=== PATIENT | female | born 1960 | race Caucasian/White ===

== ENCOUNTER 2018-07-31 05:18 | Day surgery (SDC) | payer OTHER ==
[~2018-07-31] VITALS: Ht 152.4 cm; Wt 61.7 kg
[~2018-07-31 05:18] MED LIST: CATAPRES0.1 MG PO; MULTIPLE VITAM1 EACH PO; RESTORIL7.5 MG PO; SEROQUEL PO
[2018-07-31] MEDS ORDERED: MIRALAX17 GM PO (09:21)
[2018-07-31] MEDS ORDERED: COLACE100 MG PO (09:21)
[2018-07-31] MEDS ORDERED: PERCOCET 5-3251 EACH PO (09:54)
== END 2018-07-31 12:10 | disposition home or self-care (01) ==
LOC: CIR.AMB 05:18
DX: R15.9 Full incontinence of feces (principal)

== ENCOUNTER 2018-11-23 05:56 | Day surgery (SDC) | payer OTHER ==
[~2018-11-23 05:56] MED LIST changes: +CLONAZEPAM0.5 MG PO; +COLACE100 MG PO; +MIRALAX17 GM PO; +PERCOCET 5-3251 EACH PO
[2018-11-23] MEDS ORDERED: PERCOCET 5-3251 EACH PO (11:21)
== END 2018-11-23 14:25 | disposition home or self-care (01) ==
LOC: CIR.AMB 05:56
DX: R15.9 Full incontinence of feces (principal)
CPT/HCPCS: 64581; C1778

== ENCOUNTER → 2018-12-07 | Day surgery (SDC) | payer OTHER | END | disposition home or self-care (01) | LOC: ADM 12-04 10:30 → CIR.AMB 05:50 | DX: R15.9 Full incontinence of feces (principal) | CPT/HCPCS: 64590; C1767 ==

== ENCOUNTER 2019-05-10 05:40 | Day surgery (SDC) | payer OTHER ==
[2019-05-10] MEDS ORDERED: PERCOCET 5-3251 EACH PO (09:37)
== END 2019-05-10 11:10 | disposition home or self-care (01) ==
LOC: CIR.AMB 05:40 → ADM 09:15 → CIR.AMB 11:10
DX: R15.9 Full incontinence of feces (principal)